=== PATIENT | male | born 1995 | race Caucasian/White ===

== ENCOUNTER 2018-03-02 14:08 | Emergency (ER) | payer OTHER ==
[2018-03-02] MEDS: DIPHTH,PERTUSS(ACELL),TET TOX 0.5 ML DISP.SYRIN. VAX IM (15:00)
[2018-03-02] MEDS ORDERED: IOHEXOL 300 MG/ML 100ML VIAL. IV (15:15)
[2018-03-02] MEDS ORDERED: CONTRAST GIVEN. MC (15:15)
[2018-03-02] MEDS: ONDANSETRON ODT 4 MG TAB.RAPDIS. PO (16:07)
[2018-03-02] MEDS: IBUPROFEN 800 MG TABLET. PO (16:08)
== END 2018-03-02 16:11 | disposition home or self-care (01) ==
LOC: ER 14:08
DX: S09.90XA Unspecified injury of head, initial encounter (principal); R42 Dizziness and giddiness; W22.8XXA Striking against or struck by other objects, initial encounter; Y99.0 Civilian activity done for income or pay; Y99.8 Other external cause status; Y92.69 Other specified industrial and construction area as the place of occurrence of the external cause
CPT/HCPCS: 70450; 90471; 90715; 99284-25; Q0162